=== PATIENT | male | born 1975 | race Caucasian/White ===

== ENCOUNTER 2021-06-12 10:20 | Outpatient (CLI) | payer OTHER ==
[2021-06-12 11:28] LABS: Hemoglobin 15.5 g/dL (13.5-17.5); Mean Corpuscular HGB CONC 34.9 g/dL (32.0-36.0); Mean Corpuscular Hemoglobin 31.3 pg (27.0-33.0); Mean Corpuscular Volume 89.5 fl (81.2-95.1); Mean Platelet Volume 9.2 fl (7.4-10.4); Platelet Count 258 10x3/uL (150-450); RBC Distribution Width 12.2 % (11.5-14.5); Red Blood Cell (RBC) Count 4.96 10x6/uL (4.32-5.72); White Blood Cell (WBC) Count 6.6 10x3/uL (3.5-10.5)
[2021-06-12 11:35] LABS: Prothrombin Time 10.7 sec (9.5-12.1)
[2021-06-12 11:50] LABS: Anion Gap 12 mmol/L (10-20); BUN (Urea Nitrogen) 16 mg/dL (8.9-20.6); Calc. Creatinine Clearance 0 mL/min (70-130); Calcium 9.8 mg/dL (7.8-10.44); Carbon Dioxide 29 mmol/L (22-29); Chloride 102 mmol/L (98-107); Glucose 93 mg/dL (70-105); Potassium 4.3 mmol/L (3.5-5.1); Sodium 139 mmol/L (136-145)
[2021-06-13 00:46] LABS: SARS-CoV-2 PCR by NAA Not Detected (NotDetected)
== END 2021-06-12 10:21 | disposition home or self-care (01) ==
LOC: LABBT 10:20
PROVIDERS: ATTEND Internal Medicine Cardiovascular Disease
DX: Z01.812 Encounter for preprocedural laboratory examination (principal); I48.0 Paroxysmal atrial fibrillation; Z20.822 Contact with and (suspected) exposure to COVID-19
CPT/HCPCS: 80048; 85027; 85610; U0003; U0005

== ENCOUNTER 2021-06-15 05:47 | Day surgery (SDC) | payer OTHER ==
[2021-06-11 14:52] VITALS: BMI 29.6
[2021-06-15] MEDS ORDERED: Protamine Sulfate 50 MG/5 ML VIAL ONE (06:44)
[2021-06-15] MEDS ORDERED: Heparin 10,000 UNITS/ 10 ML VIAL ONE (06:44)
[2021-06-15] MEDS ORDERED: Heparin 25,000 units/D5W 500 ML ONE (06:44)
[2021-06-15] MEDS ORDERED: Fentanyl 100 MCG/2 ML VIAL ONE (06:46)
[2021-06-15] MEDS ORDERED: Promethazine HCl 25 MG/ML VIAL IM PRN (07:29)
[2021-06-15] MEDS ORDERED: Ondansetron HCl/PF 4 MG/2 ML Vial IVP PRN (07:29)
[2021-06-15] MEDS ORDERED: Promethazine HCl 25 MG/ML VIAL IVPB PRN (07:29)
[2021-06-15] MEDS ORDERED: Morphine Sulfate 2 MG/ML SYRINGE SLOW IVP PRN (07:29)
[2021-06-15] MEDS ORDERED: Midazolam HCl 2 mg/2 ml Vial ONE (07:30)
[2021-06-15] MEDS ORDERED: Dexamethasone 20 MG/5 ML VIAL ONE (07:40)
[2021-06-15] MEDS ORDERED: Lidocaine 1% PF 5 ML VIAL ONE (07:40)
[2021-06-15] MEDS ORDERED: Ondansetron PF 4 MG/2 ML Vial ONE ×2 (07:40→11:34)
[2021-06-15] MEDS ORDERED: PROPOFOL 200 MG/20 ML VIAL ONE (07:40)
[2021-06-15] MEDS ORDERED: Rocuronium Bromide 10 MG/ML (10ML VIAL) ONE (07:40)
[2021-06-15] MEDS ORDERED: SUGAMMADEX SODIUM 200 MG/2 ML VIAL ONE (09:38)
== END 2021-06-15 15:48 | disposition home or self-care (01) ==
LOC: SDC 05:47
PROVIDERS: ATTEND Internal Medicine Cardiovascular Disease
PROC: 02K83ZZ Map Conduction Mechanism, Percutaneous Approach (ICD-10-PCS; principal; 2021-06-15)
PROC: 4A0234Z Measurement of Cardiac Electrical Activity, Percutaneous Approach (ICD-10-PCS; principal; 2021-06-15)
PROC: 4A023FZ Measurement of Cardiac Rhythm, Percutaneous Approach (ICD-10-PCS; principal; 2021-06-15)
PROC: 02583ZZ Destruction of Conduction Mechanism, Percutaneous Approach (ICD-10-PCS; principal; 2021-06-15)
PROC: B24BZZ4 Ultrasonography of Heart with Aorta, Transesophageal (ICD-10-PCS; principal; 2021-06-15)
DX: I48.0 Paroxysmal atrial fibrillation (principal); I48.3 Typical atrial flutter; E78.5 Hyperlipidemia, unspecified; Z79.01 Long term (current) use of anticoagulants; Z79.899 Other long term (current) drug therapy; Z87.891 Personal history of nicotine dependence
CPT/HCPCS: 85347; 93005; 93312; 93613; 93655; 93656; 93662; C1731; C1732; C1759; C1894; C2630; J1100; J1644; J2250; J2405; J2704; J2720; J3010

== ENCOUNTER 2022-01-04 05:59 | Day surgery (SDC) | payer OTHER ==
[2022-01-02 15:05] VITALS: BMI 30.2
[2022-01-04] MEDS ORDERED: Protamine Sulfate 50 MG/5 ML VIAL ONE (06:50)
[2022-01-04] MEDS ORDERED: Heparin 10,000 UNITS/ 10 ML VIAL ONE ×2 (06:50→07:00)
[2022-01-04] MEDS ORDERED: Heparin 25,000 units/D5W 500 ML ONE (07:00)
[2022-01-04] MEDS ORDERED: fentaNYL Citrate/PF 100 MCG/2 ML SYRINGE ONE (07:13)
[2022-01-04] MEDS ORDERED: SUGAMMADEX SODIUM 200 MG/2 ML VIAL ONE (07:13)
[2022-01-04] MEDS ORDERED: Famotidine/PF 20 mg/2ml Vial ONE (07:13)
[2022-01-04] MEDS ORDERED: Midazolam HCl 2 mg/2 ml Vial ONE (07:32)
[2022-01-04] MEDS ORDERED: Isoproterenol 0.2 MG/1 ML AMP ONE (07:32)
[2022-01-04] MEDS ORDERED: ePHEDrine 50 MG/ML VIAL ONE (07:36)
[2022-01-04] MEDS ORDERED: Ondansetron PF 4 MG/2 ML Vial ONE (07:36)
[2022-01-04] MEDS ORDERED: PHENYLEPHRINE-NS 100 MCG/ML 10 ML SYRINGE ONE (07:36)
[2022-01-04] MEDS ORDERED: Ketorolac Tromethamine 30 MG/ML VIAL ONE (07:36)
[2022-01-04] MEDS ORDERED: PROPOFOL 200 MG/20 ML VIAL ONE (07:36)
[2022-01-04] MEDS ORDERED: Rocuronium Bromide 10 MG/ML (10ML VIAL) ONE (07:36)
[2022-01-04] MEDS ORDERED: Metoclopramide HCl 10 MG/2 ML VIAL ONE (07:36)
[2022-01-04] MEDS ORDERED: Dexamethasone 20 MG/5 ML VIAL ONE (07:36)
[2022-01-04] MEDS ORDERED: FENTANYL 50 MCG/ML VIAL 50 MCG/ML VIAL ONE (10:41)
[2022-01-04] MEDS ORDERED: Promethazine HCl 25 MG/ML VIAL ONE (11:18)
== END 2022-01-04 13:53 | disposition home or self-care (01) ==
LOC: SDC 05:59
PROVIDERS: ATTEND Internal Medicine Cardiovascular Disease
PROC: 4A023FZ Measurement of Cardiac Rhythm, Percutaneous Approach (ICD-10-PCS; principal; 2022-01-04)
PROC: B246ZZ4 Ultrasonography of Right and Left Heart, Transesophageal (ICD-10-PCS; principal; 2022-01-04)
PROC: 4A0234Z Measurement of Cardiac Electrical Activity, Percutaneous Approach (ICD-10-PCS; principal; 2022-01-04)
PROC: 02K83ZZ Map Conduction Mechanism, Percutaneous Approach (ICD-10-PCS; principal; 2022-01-04)
PROC: 02583ZZ Destruction of Conduction Mechanism, Percutaneous Approach (ICD-10-PCS; principal; 2022-01-04)
DX: I48.0 Paroxysmal atrial fibrillation (principal); Z79.01 Long term (current) use of anticoagulants; Z79.899 Other long term (current) drug therapy
CPT/HCPCS: 85347; 93005; 93312; 93656; C1731; C1732; C1759; C1760; C1769; C1894; C2630; J1100; J1644; J1885; J2250; J2405; J2550; J2704; J2720; J2765; J3010; J3490; S0028